=== PATIENT | male | born 1960 | race Caucasian/White ===

== ENCOUNTER 2017-11-03 12:13 | Emergency (ER) | payer OTHER ==
--- NOTE | 2017-11-03 13:44 | EDPHY ---
H & P Stated Complaint: L eye scratch by cat Time Seen by Provider: 11/03/17 13:09 HPI/ROS: CHIEF COMPLAINT: Left eye injury HISTORY OF PRESENT ILLNESS: 57-year-old male presents with a left eye injury. He was sleeping with his cat last night. The cat became afraid suddenly and scratched the patient's left eye. Since then he has had ongoing tearing in the left eye. No visual change and no eye pain. - Personal History Current Tetanus/Diphtheria Vaccine: Yes Current Tetanus Diphtheria and Acellular Pertussis (TDAP): Yes - Medical/Surgical History Hx Asthma: No Hx Chronic Respiratory Disease: No Hx Diabetes: No Hx Cardiac Disease: No Hx Renal Disease: No Hx Cirrhosis: No Hx Alcoholism: No Hx HIV/AIDS: No Hx Splenectomy or Spleen Trauma: No Other PMH: L knee surgery, JULES, hyperlipidemia - Social History Smoking Status: Never smoked - Physical Exam Exam: Visual Acuity: noted from Nurse's notes. Lids: no proptosis, no periorbital erythema or swelling, no vesicles Conjunctivae: Normal exam of the cornea, Diffuse erythema on the lateral aspect of the left eye, there is a tiny laceration of the conjunctiva laterally Pupils:equal round and reactive to light EOMI Cornea: Normal Anterior chamber:Clear, no hyphema Constitutional: Initial Vital Signs Temperature (C) 36.5 C 11/03/17 12:18 Heart Rate 68 11/03/17 12:18 Respiratory Rate 16 11/03/17 12:18 Blood Pressure 123/85 H 11/03/17 12:18 O2 Sat (%) 95 11/03/17 12:18 O2 Delivery Mode Room Air Allergies/Adverse Reactions: No Known Allergies Allergy (Unverified 11/03/17 12:18) Home Medications: Medication Instructions Recorded Erythromycin 0.5% 1 vernell OP TID #1 opht.oint 11/03/17 Medical Decision Making ED Course/Re-evaluation: This patient presents with a tiny conjunctival laceration secondary to a cat scratch. I feel this will heal without additional care. Erythromycin ointment given. The patient was given a referral to Ophthalmology and was instructed to call tomorrow if the irritation persists. Differential Diagnosis: includes though not limited to corneal abrasion, globe rupture, visual change, suturable laceration Departure - Departure Disposition: Home, Routine, Self-Care Clinical Impression: Laceration of left conjunctiva Condition: Good Instructions: Conjunctivitis (ED) Additional Instructions: Return for visual change, eye drainage, any concerns. Referrals: Esha Owens MD [Medical Doctor] - As per Instructions (Call to make an appointment if you continue to have eye irritation tomorrow.) Prescriptions: Erythromycin 0.5% 1 vernell OP TID #1 opht.oint
[2017-11-03 13:58] VITALS: BP 123/87
== END 2017-11-03 14:05 | disposition home or self-care (01) ==
DX: S05.32XA Ocular laceration without prolapse or loss of intraocular tissue, left eye, initial encounter (principal); W55.03XA Scratched by cat, initial encounter; Y99.8 Other external cause status; Y93.84 Activity, sleeping

== ENCOUNTER 2018-03-07 10:16 | Emergency (ER) | payer OTHER ==
[2018-03-07] MEDS ORDERED: ASPIRIN 81 MG CHEWABLE TAB PO ONE (10:40)
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
[2018-03-07 10:50] LABS: PLATELET COUNT 294 10^3/uL (150-400)
[2018-03-07] MEDS ORDERED: KETOROLAC 15 MG/1 ML SDV IVP ONE (11:46)
[2018-03-07 15:44] VITALS: BP 128/76
--- NOTE | 2018-03-07 19:55 | CPEKG ---
Test Reason : OPEN Blood Pressure : / mmHG Vent. Rate : 076 BPM Atrial Rate : 076 BPM P-R Int : 150 ms QRS Dur : 091 ms QT Int : 378 ms P-R-T Axes : 045 053 048 degrees QTc Int : 426 ms Sinus rhythm Abnormal inferior Q waves Confirmed by Annalisa Hadley ([id number]) on 03/07/2018 7:55:02 PM Referred By: Confirmed By:Annalisa Hadley
--- NOTE | 2018-03-07 19:59 | CPEKG ---
Test Reason : OPEN Blood Pressure : / mmHG Vent. Rate : 069 BPM Atrial Rate : 069 BPM P-R Int : 157 ms QRS Dur : 096 ms QT Int : 405 ms P-R-T Axes : 033 045 075 degrees QTc Int : 434 ms Sinus rhythm Confirmed by Annalisa Hadley ([id number]) on 03/07/2018 7:58:39 PM Referred By: Confirmed By:Annalisa Hadley
== END 2018-03-07 15:44 | disposition home or self-care (01) ==
DX: R07.89 Other chest pain (principal); R06.02 Shortness of breath; R42 Dizziness and giddiness; E78.00 Pure hypercholesterolemia, unspecified
CPT/HCPCS: 84484-PO; 96374; J1885